=== PATIENT | male | born 1950 | race Native Hawaiian/Other Pacific Islander ===

== ENCOUNTER 2018-10-20 11:07 | Outpatient (CLI) | payer OTHER | END 2018-10-20 11:10 | disposition short-term general hospital (02) | LOC: AMB 11:07 | DX: R10.31 Right lower quadrant pain (principal) | CPT/HCPCS: A0425; A0427 ==

== ENCOUNTER 2018-10-20 11:18 | Emergency (ER) | payer OTHER ==
[~2018-10-20] VITALS: Ht 170.2 cm; Wt 72.6 kg
[2018-10-20 11:20] VITALS: BP 168/101; TEMP 97.8
[2018-10-20 12:28] LABS: PLATELET COUNT 178 K/uL (142-355)
[2018-10-20 12:29] LABS: POTASSIUM 3.9 mmol/L (3.6-5.2)
[2018-10-20 12:43] LABS: PARTIAL THROMBOPLASTIN TIME 22.5 SECONDS (24.5-33.6)
== END 2018-10-20 15:47 | disposition home or self-care (01) ==
LOC: ED 11:18
PROVIDERS: Family Medicine
DX: R10.31 Right lower quadrant pain (principal); R93.5 Abnormal findings on diagnostic imaging of other abdominal regions, including retroperitoneum; F17.210 Nicotine dependence, cigarettes, uncomplicated
CPT/HCPCS: 36415; 80053; 81000; 85027; 85610; 85730; 96374; 96376; 99284; J2175; J2405